=== PATIENT | male | born 1960 | race African-American/Black ===

== ENCOUNTER 2017-05-22 11:26 | Emergency (ER) | payer SELFPAY ==
[~2017-05-22] VITALS: Ht 177.8 cm; Wt 101.0 kg
[2017-05-22] MEDS ORDERED: KETOROLAC 60MG/2ML VIAL IM ONE (13:00)
[2017-05-22] MEDS ORDERED: CYCLOBENZAPRINE 10MG TABLET PO ONE (13:00)
[2017-05-22 13:06] VITALS: BP 150/90
== END 2017-05-22 13:28 | disposition home or self-care (01) ==
LOC: ER 12:47
DX: M62.838 Other muscle spasm (principal); S16.1XXA Strain of muscle, fascia and tendon at neck level, initial encounter; X50.0XXA Overexertion from strenuous movement or load, initial encounter; Y93.89 Activity, other specified; Y92.89 Other specified places as the place of occurrence of the external cause; Z88.8 Allergy status to other drugs, medicaments and biological substances; F17.210 Nicotine dependence, cigarettes, uncomplicated
CPT/HCPCS: 96372; 99283; J1885

== ENCOUNTER 2017-06-29 11:23 | Inpatient (IN) | payer SELFPAY ==
[~2017-06-29] VITALS: Ht 177.8 cm; Wt 99.8 kg
[2017-06-29] MEDS ORDERED: SODIUM CHLORIDE 0.9% 1,000 ML IV ONE (16:00)
[2017-06-29] MEDS ORDERED: TRAMADOL 50MG TABLET PO ONE (16:00)
[2017-06-29 16:26] LABS: BASOPHILS % 0.6 % (0.0-2.0); HEMOGLOBIN. 15.8 g/dL (14.0-18.0); LYMPHOCYTES % 32.1 % (20.0-50.0); MEAN CORPUSCULAR HEMOGLOBIN 28.3 pg (28.0-32.0); MEAN CORPUSCULAR VOLUME 82.1 fL (80.0-94.0); MEAN PLATELET VOLUME 8.9 fl (7.4-10.4); NEUTROPHILS % 56.3 % (40.0-76.0); PLATELET 145 x1000/uL (130-400); RED CELL DISTRIBUTION WIDTH 14.1 % (11.6-14.6)
[2017-06-29 16:31] LABS: CHLORIDE 105 mEq/L (98-107)
[2017-06-29 16:35] LABS: CARBON DIOXIDE 30 mEq/L (21-32)
[2017-06-29 16:39] LABS: AMYLASE 26 IU/L (25-115); PROTHROMBIN TIME 10.1 sec (9.4-11.6)
[2017-06-29] MEDS ORDERED: METRONIDAZOLE 500 MG PREMIX 100 ML IV ONE (18:00)
[2017-06-29] MEDS ORDERED: PIPERACILLIN/TAZOBACTAM 3.375GM/50ML PREMIX IV ONE (18:00)
[2017-06-29] MEDS ORDERED: MORPHINE SULFATE 4 MG/ML CPJ (NOT FOR IM USE) IV ONE (18:00)
[2017-06-29] MEDS ORDERED: ONDANSETRON HCL 4MG/2ML VIAL IV ONE (18:00)
[2017-06-29] MEDS ORDERED: PIPERACILLIN/TAZ 3.375G PREMIX 50 ML IV NR (18:06)
[2017-06-29 22:00] VITALS: BP 123/80
[2017-06-29 22:30] VITALS: BP 123/80
[2017-06-29] MEDS ORDERED: DEXTROSE 50% WATER 50ML SYRINGE IV PRN (22:30)
[2017-06-29] MEDS ORDERED: ONDANSETRON HCL 4MG/2ML VIAL IV PRN (22:30)
[2017-06-30] MEDS: LEVOFLOXACIN 500MG PREMIX 100 ML IV SCH (00:12)
[2017-06-30] MEDS: DEXT 5%/0.45% NACL 1000ML 1,000 ML IV SCH ×2 (00:12→11:20)
[2017-06-30 04:00] VITALS: BP 113/74
[2017-06-30] MEDS: METRONIDAZOLE 500 MG PREMIX 100 ML IV SCH ×3 (05:44→23:57)
[2017-06-30] MEDS: BLOOD SUGAR DIAGNOSTIC STRIP TEST SCH ×4 (06:24→21:41)
[2017-06-30] MEDS: HYDROMORPHONE HCL/PF 2MG/ML CPJ IV PRN ×4 (06:57→21:32)
[2017-06-30] MEDS: INSULIN LISPRO 100 UNITS/ML SUBCUT SCH ×4 (07:00→21:00)
[2017-06-30 08:00] VITALS: BP 119/69
[2017-06-30 10:02] LABS: BASOPHILS % 0.6 % (0.0-2.0); EOSINOPHILS % 3.3 % (0.0-5.0); HEMATOCRIT. 43.6 % (42.0-52.0); HEMOGLOBIN. 14.8 g/dL (14.0-18.0); LYMPHOCYTES % 32.6 % (20.0-50.0); MEAN CORPUSCULAR HEMOGLOBIN 27.8 pg (28.0-32.0); MEAN CORPUSCULAR VOLUME 81.9 fL (80.0-94.0); MEAN PLATELET VOLUME 8.8 fl (7.4-10.4); MONOCYTES % 8.3 % (2.0-8.0); NEUTROPHILS % 55.2 % (40.0-76.0); PLATELET 146 x1000/uL (130-400); RED BLOOD CELL COUNT 5.32 mill/uL (4.7-6.1); RED CELL DISTRIBUTION WIDTH 14.1 % (11.6-14.6)
[2017-06-30 10:11] LABS: CARBON DIOXIDE 28 mEq/L (21-32); CHLORIDE 108 mEq/L (98-107)
[2017-06-30 12:00] VITALS: BP 123/72
[2017-06-30 16:00] VITALS: BP 101/74
[2017-06-30] MEDS ORDERED: KCL 20MEQ/100ML PREMIX 100 ML IV SCH (16:00)
[2017-06-30 20:00] VITALS: BP 139/89
[2017-07-01] VITALS: BP_SYST 102; BP_SYST 131; BP_DIAS 65; BP_DIAS 70
[2017-07-01 04:00] VITALS: BP 123/77
[2017-07-01] MEDS: DEXT 5%/0.45% NACL 1000ML 1,000 ML IV SCH (04:01)
[2017-07-01] MEDS: LEVOFLOXACIN 500MG PREMIX 100 ML IV SCH (04:01)
[2017-07-01] MEDS: BLOOD SUGAR DIAGNOSTIC STRIP TEST SCH (06:12)
[2017-07-01] MEDS: HYDROMORPHONE HCL/PF 2MG/ML CPJ IV PRN (06:36)
[2017-07-01] MEDS ORDERED: METRONIDAZOLE 500 MG PREMIX 100 ML IV SCH (07:00)
[2017-07-01 07:03] LABS: BASOPHILS % 0.3 % (0.0-2.0); EOSINOPHILS % 4.1 % (0.0-5.0); HEMATOCRIT. 43.7 % (42.0-52.0); HEMOGLOBIN. 15.1 g/dL (14.0-18.0); MEAN CORPUSCULAR HEMOGLOBIN 28.1 pg (28.0-32.0); MEAN CORPUSCULAR VOLUME 81.7 fL (80.0-94.0); MEAN PLATELET VOLUME 8.8 fl (7.4-10.4); MONOCYTES % 6.6 % (2.0-8.0); PLATELET 150 x1000/uL (130-400); RED BLOOD CELL COUNT 5.35 mill/uL (4.7-6.1); RED CELL DISTRIBUTION WIDTH 13.9 % (11.6-14.6)
[2017-07-01 07:50] LABS: CARBON DIOXIDE 27 mEq/L (21-32); CHLORIDE 106 mEq/L (98-107)
[2017-07-01] MEDS: INSULIN LISPRO 100 UNITS/ML SUBCUT SCH (07:50)
[2017-07-01 08:00] VITALS: BP 131/75
[2017-07-01 12:04] VITALS: BP 152/90
[2017-07-01 12:33] VITALS: BP 152/90
== END 2017-07-01 12:57 | disposition home or self-care (01) | DRG 249 ==
LOC: ER 13:36 → 6EST 18:17 → EDBEDREQTM 18:23 → EDBEDREQ 18:23 → ENRESERV 21:17
PROVIDERS: ADMIT Hospitalist; ATTEND Hospitalist
DX: K52.9 Noninfective gastroenteritis and colitis, unspecified (principal); E11.9 Type 2 diabetes mellitus without complications; Z88.8 Allergy status to other drugs, medicaments and biological substances
CPT/HCPCS: 36415; 74176; 80048; 80053; 82150; 82962; 83690; 85025; 85610; 87493; 96361; 96374; 96375; 99285; J1170; J1956; J2270; J2405; J3480; J3490; J7030

== ENCOUNTER 2019-04-10 09:37 | Emergency (ER) | payer SELFPAY ==
[~2019-04-10] VITALS: Ht 177.8 cm; Wt 107.0 kg
[2019-04-10] MEDS ORDERED: REGULAR INSULIN (10:09)
[2019-04-10] MEDS ORDERED: LANTUS (10:09)
[2019-04-10] MEDS ORDERED: IBUPROFEN 600MG TABLET PO ONE (10:45)
[2019-04-10 11:28] VITALS: BP 144/67
== END 2019-04-10 11:29 | disposition home or self-care (01) ==
LOC: ER 09:37
DX: M79.604 Pain in right leg (principal); Z88.8 Allergy status to other drugs, medicaments and biological substances
CPT/HCPCS: 73590; 99283

== ENCOUNTER 2019-05-23 20:59 | Emergency (ER) | payer SELFPAY ==
[~2019-05-23] VITALS: Ht 177.8 cm; Wt 113.0 kg
[~2019-05-23 20:59] MED LIST: LANTUS; REGULAR INSULIN
[2019-05-23] MEDS ORDERED: MORPHINE SULFATE 10 MG/ML CPJ IM ONE (22:00)
[2019-05-24] MEDS ORDERED: CEFTRIAXONE SODIUM 250 MG/VIAL IM ONE (01:00)
[2019-05-24] MEDS ORDERED: KETOROLAC 60MG/2ML VIAL IM ONE (01:00)
[2019-05-24 02:20] VITALS: BP 137/86
== END 2019-05-24 20:31 | disposition home or self-care (01) ==
LOC: ER 05-24 07:24
DX: N45.1 Epididymitis (principal); N45.2 Orchitis; I86.1 Scrotal varices; N43.3 Hydrocele, unspecified; F17.210 Nicotine dependence, cigarettes, uncomplicated; E11.9 Type 2 diabetes mellitus without complications; Z98.890 Other specified postprocedural states; Z88.2 Allergy status to sulfonamides
CPT/HCPCS: 76870; 82962; 93976; 96372; 99284; 99406; J0696; J1885; J2270

== ENCOUNTER 2019-08-19 19:32 | Emergency (ER) | payer SELFPAY ==
[~2019-08-19] VITALS: Ht 177.8 cm; Wt 104.0 kg
[2019-08-19 22:39] LABS: CLARITY URINE CLOUDY (CLEAR); COLOR URINE YELLOW (YELLOW); KETONES URINE NEGATIVE (NEGATIVE); LEUKOCYTE ESTERASE URINE 2+ (NEGATIVE); NITRITE URINE POSITIVE (NEGATIVE); OCCULT BLOOD URINE 1+ (NEGATIVE); PH URINE 5.5 (4.5-8.0); PROTEIN URINE NEGATIVE (NEGATIVE); SPECIFIC GRAVITY URINE 1.018 (1.005-1.030)
[2019-08-19 23:26] VITALS: BP 125/89
== END 2019-08-19 23:27 | disposition home or self-care (01) ==
LOC: ER 20:00
DX: N50.812 Left testicular pain (principal); E11.9 Type 2 diabetes mellitus without complications; F17.210 Nicotine dependence, cigarettes, uncomplicated; Z79.4 Long term (current) use of insulin
CPT/HCPCS: 76870; 81003; 93976; 99284